=== PATIENT | male | born 1945 | race Caucasian/White ===

== ENCOUNTER 2019-03-10 00:21 | Inpatient (IN) | payer MEDICARE, OTHER ==
[~2019-03-10] VITALS: Ht 177.8 cm; Wt 81.8 kg
[2019-03-10] MEDS ORDERED: iohexol 350MG/ML 100ml bottle IV ONE (00:42)
[2019-03-10 01:14] LABS: BASOPHILS % (AUTO) 0.4 % (0-1); EOSINOPHILS # (AUTO) 0.1 X10'3 (0-0.9); EOSINOPHILS % (AUTO) 0.7 % (0-6); HEMATOCRIT 41.3 % (42.0-52.0); HEMOGLOBIN 14.1 g/dl (14.0-17.9); LYMPHOCYTES # (AUTO) 1.6 X10'3 (1.1-4.8); LYMPHOCYTES % (AUTO) 20.9 % (21-51); MEAN CORPUSCULAR HEMOGLOBIN 30.9 PG (27.0-31.0); MEAN CORPUSCULAR HGB CONC 34.2 g/dL (33.0-36.5); MEAN CORPUSCULAR VOLUME 90.4 FL (78-98); MEAN PLATELET VOLUME 7.8 FL (7.4-10.4); MONOCYTES # (AUTO) 0.5 X10'3 (0-0.9); NEUTROPHILS # (AUTO) 5.4 X10'3 (1.8-7.7); PLATELET COUNT 253 X10'3 (140-440); RED BLOOD COUNT 4.57 X10'6 (4.70-6.10); RED CELL DISTRIBUTION WIDTH 13.4 % (11.5-14.5); WHITE BLOOD COUNT 7.6 X10'3 (4.5-11.0)
[2019-03-10 01:27] LABS: PARTIAL THROMBOPLASTIN TIME 26 SECONDS (22-32)
[2019-03-10 01:28] LABS: ALANINE AMINOTRANSFERASE 28 U/L (12-78); ALBUMIN 3.5 G/DL (3.4-5.0); ALBUMIN/GLOBULIN RATIO 1.1 (1.1-1.5); ALKALINE PHOSPHATASE 60 IU/L (46-116); ANION GAP 11 (8-16); ASPARTATE AMINO TRANSFERASE 21 U/L (10-37); BILIRUBIN,TOTAL 0.6 MG/DL (0.1-1.0); BLOOD UREA NITROGEN 12 MG/DL (7-18); BUN/CREATININE RATIO 13.8 (5.4-32.0); CALCIUM 8.5 MG/DL (8.5-10.1); CHLORIDE 101 MMOL/L (99-107); CREATININE 0.87 MG/DL (0.60-1.10); GLUCOSE 106 MG/DL (70-104); POTASSIUM 3.8 MMOL/L (3.5-5.1); SODIUM 135 MMOL/L (135-145); TOTAL PROTEIN 6.6 G/DL (6.4-8.2); eGFR 86 ML/MIN
[2019-03-10 01:28] LABS: URINE AMPHETAMINE SCREEN NEGATIVE (Neg); URINE BARBITUATE SCREEN NEGATIVE (Neg); URINE BENZODIAZEPINES SCREEN NEGATIVE (Neg); URINE CANNABINOID SCREEN NEGATIVE (Neg); URINE COCAINE SCREEN NEGATIVE (Neg); URINE METHADONE SCREEN NEGATIVE (Neg); URINE OPIATE SCREEN NEGATIVE (Neg); URINE PHENCYCLIDINE SCREEN NEGATIVE (Neg)
[2019-03-10] MEDS ORDERED: NO HOME MEDS (01:43)
[2019-03-10] MEDS ORDERED: acetaminophen 325mg tablet PO PRN ×2 (02:00)
[2019-03-10] MEDS ORDERED: ondansetron/PF 4mg/2ml inj IV PRN (02:00)
[2019-03-10] MEDS ORDERED: magnesium hydroxide 30ml (MOM) UD suspension PO PRN (02:00)
[2019-03-10] MEDS ORDERED: mag hydrox/Alum hydrox/simeth 30ml oral suspension PO PRN (02:00)
[2019-03-10] MEDS ORDERED: morphine 2 MG/ML inj. syringe IV PRN ×2 (02:00)
[2019-03-10] MEDS ORDERED: METO-467 PO (02:07)
--- NOTE | 2019-03-10 02:08 | NUR ---
Patient up to the bathroom w/o problem.
[2019-03-10] MEDS ORDERED: METO25TA6 PO (02:13)
--- NOTE | 2019-03-10 02:50 | NUR ---
PT ARRIVED TO ROOM 4023A FROM ER. PT AMBULATED TO BED FROM W/O DIFFICULTIES. HIS FRIEND IS AT THE BEDSIDE. PT HAS BEEN ORIENTED TO THE ROOM. CALL LIGHT GIVEN. VSS. RECEIVED REPORT FROM JABIER BLACKBURN PRIOR TO PT'S ARRIVAL.
[2019-03-10 03:00] VITALS: BP 169/87
[2019-03-10 06:00] VITALS: BP 143/78
--- NOTE | 2019-03-10 06:21 | NUR ---
Problems reprioritized. Patient report given, questions answered & plan of care reviewed with tristan Mccall.
[2019-03-10 06:22] LABS: HEMOGLOBIN A1C 5.6 % (4.5-6.2)
--- NOTE | 2019-03-10 06:30 | NUR ---
Patient in room ORTHO 4023. I have received report from JABIER Desouza and had the opportunity to ask questions and assume patient care.
[2019-03-10 06:32] LABS: CHOLESTEROL 196 MG/DL (0-200); HDL CHOLESTEROL 39 MG/DL (35-60); LDL CHOLESTEROL 143 MG/DL (50-100); TRIGLYCERIDES 123 MG/DL (20-135)
[2019-03-10] MEDS: apixaban 5mg tablet PO SCH ×2 (09:43→20:35)
[2019-03-10] MEDS ORDERED: pneumococcal 23-VAL P-sac vacc 25 mcg/0.5ml vial IMVAC ONE (10:00)
[2019-03-10 18:30] VITALS: BP 139/86
[2019-03-10 22:00] VITALS: BP 132/87
[2019-03-11 02:00] VITALS: BP 101/61
[2019-03-11 05:31] LABS: BASOPHILS # (AUTO) 0.1 X10'3 (0-0.2); BASOPHILS % (AUTO) 0.8 % (0-1); EOSINOPHILS # (AUTO) 0.2 X10'3 (0-0.9); EOSINOPHILS % (AUTO) 2.1 % (0-6); HEMATOCRIT 44.1 % (42.0-52.0); HEMOGLOBIN 15.2 g/dl (14.0-17.9); LYMPHOCYTES % (AUTO) 24.8 % (21-51); MEAN CORPUSCULAR HEMOGLOBIN 31.2 PG (27.0-31.0); MEAN CORPUSCULAR HGB CONC 34.4 g/dL (33.0-36.5); MEAN CORPUSCULAR VOLUME 90.6 FL (78-98); MEAN PLATELET VOLUME 7.4 FL (7.4-10.4); MONOCYTES # (AUTO) 0.7 X10'3 (0-0.9); MONOCYTES % (AUTO) 8.9 % (2-12); NEUTROPHILS # (AUTO) 5.1 X10'3 (1.8-7.7); NEUTROPHILS % (AUTO) 63.4 % (42-75); PLATELET COUNT 253 X10'3 (140-440); RED BLOOD COUNT 4.87 X10'6 (4.70-6.10); RED CELL DISTRIBUTION WIDTH 13.9 % (11.5-14.5)
[2019-03-11 05:32] LABS: ANION GAP 10 (8-16); BLOOD UREA NITROGEN 12 MG/DL (7-18); BUN/CREATININE RATIO 11.4 (5.4-32.0); CHLORIDE 104 MMOL/L (99-107); CREATININE 1.05 MG/DL (0.60-1.10); GLUCOSE 89 MG/DL (70-104); POTASSIUM 4.4 MMOL/L (3.5-5.1); SODIUM 137 MMOL/L (135-145); TOTAL CARBON DIOXIDE 22.6 MMOL/L (24-32)
[2019-03-11 05:33] LABS: ALBUMIN 3.4 G/DL (3.4-5.0); CALCIUM 8.6 MG/DL (8.5-10.1); CHOL/HDL RATIO 4.8 (0.00-4.99); CHOLESTEROL 202 MG/DL (0-200); HDL CHOLESTEROL 42 MG/DL (35-60); LDL CHOLESTEROL 144 MG/DL (50-100); TRIGLYCERIDES 142 MG/DL (20-135); eGFR 69 ML/MIN
--- NOTE | 2019-03-11 06:02 | NUR ---
Report given to tristan Mccall.
[2019-03-11] MEDS: apixaban 5mg tablet PO SCH (09:35)
[2019-03-11] MEDS ORDERED: APIX5TAB3 PO (12:19)
--- NOTE | 2019-03-11 13:25 | NUR ---
Received discharge orders from Dr. Short. Gave pt a Eliquis coupon to take to his Pharmacy. Pt asked to be changed to Coumadin because "i was on that medication before." TC placed to Dr. Short and informed per pt would required 3 days of Coumadin before he could be discharged. Informed pt to speak with his PCP if he is requesting to change back to Coumadin. Rx for Eliquis 5mg po bid called to [facility] in [place]. Dc'd Telemetry and IV Right antecubital. No redness/swelling at insertion site. Applied pressure and bandaid over insertion site. [facility] private vehicle to home.
--- NOTE | 2019-03-11 16:00 | NUR ---
Received TC from who informed that she would like to add Lipitor 40mg po qd to pts discharge medications. TC placed to [facility] in [place] and called in RX for Lipitor 40 mg po qd #30. TC placed to pts home with no answer. Left message on pts cell phone message recorder that Dr. Short called in prescription for Lipitor for "cholesterol." Did not receive TC back from pt as of 1849.
== END 2019-03-11 13:25 | disposition home or self-care (01) | DRG 69 ==
LOC: ER 00:22 → ORTHO 4S 03:39
PROVIDERS: ADMIT Internal Medicine; ATTEND Internal Medicine
PROC: B3251ZZ Computerized Tomography (CT Scan) of Bilateral Common Carotid Arteries using Low Osmolar Contrast (ICD-10-PCS; principal; 2019-03-10)
PROC: B32G1ZZ Computerized Tomography (CT Scan) of Bilateral Vertebral Arteries using Low Osmolar Contrast (ICD-10-PCS; 2019-03-10)
PROC: B3201ZZ Computerized Tomography (CT Scan) of Thoracic Aorta using Low Osmolar Contrast (ICD-10-PCS; 2019-03-10)
PROC: B3281ZZ Computerized Tomography (CT Scan) of Bilateral Internal Carotid Arteries using Low Osmolar Contrast (ICD-10-PCS; 2019-03-10)
DX: G45.9 Transient cerebral ischemic attack, unspecified (principal); G93.40 Encephalopathy, unspecified; G45.4 Transient global amnesia; I48.0 Paroxysmal atrial fibrillation; I10 Essential (primary) hypertension; Z82.3 Family history of stroke; Z79.899 Other long term (current) drug therapy
CPT/HCPCS: 36415; 70496; 70498; 70544; 70551; 80048; 80053; 80061; 80305; 83036; 85025; 85610; 85730; 87081; 92508; 92616; 93005; 93306; 93880; 97161; 97530; 99291; G0378; Q9967